=== PATIENT | male | born 1950 | race Caucasian/White ===

== ENCOUNTER 2025-08-26 09:57 | Emergency (ER) | payer MEDICARE, OTHER, SELFPAY ==
[2025-08-26] VITALS (8 sets, daily range): BP systolic 128–150; BP diastolic 93–116; BMI 21.5
[2025-08-26 10:27] LABS: Hematocrit 46.7 % (39.0-52.0); Hemoglobin 15.5 g/dL (13.0-18.0); Mean Corp Hgb Conc. 33.2 g/dL (33.0-37.0); Mean Corpuscular Volume 99.4 fL (80.0-94.0); Nucleated Red Blood Cells % 0 % (-); Platelet Count 246 10^3/uL (130-400); Red Cell Dist. Width 11.9 % (11.5-14.5)
[2025-08-26 10:40] LABS: ALT (SGPT) 26 U/L (0-50); AST (SGOT) 29 U/L (17-59); Albumin 4.6 g/dl (3.5-5.0); Alkaline Phosphatase 75 U/L (38-126); Blood Urea Nitrogen 18 mg/dl (9-20); Calcium 10.0 mg/dl (8.4-10.2); Carbon Dioxide 24 mmol/L (22-30); Chloride 108 mmol/L (98-107); Glucose 103 mg/dl (70-99); Potassium 4.6 mmol/L (3.5-5.1); Sodium 139 mmol/L (135-145); Total Protein 6.9 g/dl (6.3-8.2); eGFR > 60.00
--- NOTE | 2025-08-26 12:08 | ED.GENMED ---
History of Present Illness
General
Chief Complaint: Heart Rate Problem
Source: patient
Exam Limitations: none
Time Seen by Provider: 08/26/25 11:56
History of Present Illness
History of Present Illness:
See MDM
Past History
Past History
ED Past Medical History: Arrthythmia (PAF)
ED Past Surgical History: Tonsilectomy and Urological
Social History
Tobacco: Non-smoker
Personal:
Living: with family
Family History
Family History: Other (Atrial fibrillation)
Phy Exam
Physical Exam
Physical Exam:
See MDM
Scores
[id number] Score for Afib Stroke Risk
Age in Years (65=0, 65-74=1, >/=75=2): > or = 75
Sex (Female=+1): Male
Congestive Heart Failure History (Yes=+1): No
Hypertension History (Yes=+1): No
Stroke/TIA/Thromboembolism History (Yes=+2): No
Vascular Disease History (Yes=+1): No
Diabetes Mellitus (Yes=+1): No
Score: 2
Anticoagulation Recommendations: Recommend anticoagulation (as validated in nonvalvular fib)
Course
Orders/Labs/Results
Orders:
Orders
08/26/25 10:11
ECG [Electrocardiogram (*1)] Urgent
Reason for Study: Palpitations
EKG- Treatment ONCE
08/26/25 10:19
CMP [Comprehensive Metabolic Panel] Urgent
Complete Blood Count/With Diff Urgent
08/26/25 12:07
0.9% Sodium Chloride 1000 ml [Nss] 1,000 ml IV BOLUS
Diltiazem HCl [Cardizem] 17 mg IV NOW STA
08/26/25 13:57
Metoprolol Xl [Toprol Xl] 25 mg PO NOW STA
08/26/25 13:58
Apixaban [Eliquis] 5 mg PO ONCE ONE
Abnormal Lab Results
08/26/25
10:19
MCV 99.4 H fL
(80.0-94.0)
MCH 33.0 H pg
(27.0-31.0)
Absolute Monos (auto) 0.7 H 10^3/uL
(0.1-0.6)
Chloride 108 H mmol/L
(98-107)
Glucose 103 H mg/dl
(70-99)
08/26/25 10:19
08/26/25 10:19
Vital Signs
Initial and Last Documented VS:
Initial Vital Signs
Temp Pulse Resp BP Pulse Ox
98.0 F 71 18 134/95 98
08/26/25 10:08 08/26/25 10:08 08/26/25 10:08 08/26/25 10:08 08/26/25 10:08
Last Documented Vital Signs
Temp Pulse Resp BP Pulse Ox
98.0 F 78 15 128/97 99
08/26/25 10:08 08/26/25 14:00 08/26/25 14:00 08/26/25 14:00 08/26/25 13:06
MDM/Problems Addressed
Differential Diagnosis Includes:
Note:
CHIEF COMPLAINT(S)
Palpitations and irregular heart rhythm consistent with atrial fibrillation for the past two days.
HISTORY OF PRESENT ILLNESS
The patient is a 75-year-old male with a history of atrial fibrillation and previous ablation presenting with palpitations and irregular heartbeat, which started the day before yesterday morning. The symptoms became more pronounced in the afternoon,
causing significant annoyance and anxiety for the patient. He described experiencing panic attacks due to concerns about potential reoccurrence of atrial fibrillation and needing another ablation procedure. The patient has not been on any
anticoagulants prior to the presentation, although he started taking aspirin after noticing the irregular heartbeat.
He reported a previous cardioversion attempt prior to his ablation, which did not maintain a normal rhythm for long. The patient is aware that ablations are not a permanent cure and recurrence is possible. He expressed concern over the possibility
of having to restart blood thinners. Currently, he is not on any prescribed medication for atrial fibrillation like metoprolol or anticoagulants like Apixaban or Rivaroxaban but had been on them in the past.
PHYSICAL EXAM
General: Alert, no acute distress.
Skin: Warm, dry.
Head: Normocephalic, atraumatic
Neck: Appears supple, trachea midline.
Eyes, Ears, Nose, Mouth, and Throat: Moist mucous membranes
Cardiovascular: No signs of cyanosis. Tachycardic and irregular
Respiratory: Respirations are non-labored.
Abdomen: Non-distended
Musculoskeletal: No deformities
Neurological: No focal neurological deficit observed.
Psychiatric: Cooperative, appropriate mood and affect.
PLAN
- Establish IV access and administer fluids.
- Administer a dose of Diltiazem to attempt to slow the heart rate.
- Consult with the cardiology team for further evaluation and management, including the potential restart of anticoagulation therapy.
- Discuss with the patient the possibility of resuming blood thinner medication for stroke prevention.
- Monitor the heart rhythm to ensure it does not remain in fast atrial fibrillation, which is not sustainable for daily living.
DIFFERENTIAL DIAGNOSIS
The Differential Diagnosis includes, in no particular order and is not limited to:
- Atrial fibrillation with rapid ventricular response
- Cardiomyopathy
- Valvular heart disease
- Hyperthyroidism
- Electrolyte imbalance
- Myocardial infarction
- Pulmonary embolism
- Congestive heart failure
- Hypertensive heart disease
- Coronary artery disease
EKG
My independent EKG interpretation is:
- Rhythm: Atrial Fibrillation with Rapid Ventricular Response (RVR)
- Heart Rate: 117 beats per minute
- Wayside: Normal
- ST Segment: No elevation noted
SUMMARY OF ENCOUNTER
The patient, a 75-year-old male with a history of atrial fibrillation, presented to the emergency department with palpitations and irregular heart rhythm. Upon admission, the patient received an intravenous dose of diltiazem, which successfully
controlled his heart rate. He reported feeling significantly better. There were no lab abnormalities found that might suggest a cause for the recurrence of atrial fibrillation.
DISPOSITION
Discharge.
ASSESSMENT
Atrial fibrillation with rapid ventricular response.
EMERGENCY TREATMENTS ADMINISTERED
Intravenous dose of diltiazem.
PLAN
The patient will be started on metoprolol and apixaban due to an elevated [id number] score to prevent stroke. The patient will also be placed on the cardiac callback tracker for follow-up.
PATIENT EDUCATION AND COUNSELING
The patient was informed about return precautions and potential symptoms that would necessitate a return to the hospital. He was counseled on the importance of follow-up with cardiology to discuss the possibility of an ablation procedure as an
outpatient.
FOLLOW-UP INSTRUCTIONS
The patient should follow up with cardiology to discuss further management, including the possibility of an ablation procedure.
MEDICATION RECONCILIATION
Started on metoprolol and apixaban.
MEDICAL DECISION MAKING
-Complexity of Data Reviewed: Chronic conditions affecting care include atrial fibrillation and history of ablation. The differential diagnosis includes atrial fibrillation with rapid ventricular response, cardiomyopathy, valvular heart disease,
hyperthyroidism, electrolyte imbalance, myocardial infarction, pulmonary embolism, congestive heart failure, hypertensive heart disease, and coronary artery disease.
-Data:
Category 1: My independent interpretation of the EKG indicated atrial fibrillation with a rapid ventricular response.
-Category 3: Discussion of management with the cardiology team regarding the initiation of anticoagulation therapy.
-Risk: Prescription medication was prescribed: metoprolol and apixaban. Consideration of Admission/Observation: Escalation of care including admission/observation was considered given the complexity and risk of the patients presenting complaint and
underlying comorbidities. However, ultimately I feel the patient is safe for outpatient management with close follow-up. Reasoning: Work-up reassuring, does not reveal any acute life/organ-threatening processes, patients symptoms well controlled
upon reevaluation, reexamination is reassuring, vitals are stable, patient agreeable with discharge, reliable for follow-up.
DIAGNOSIS
Atrial fibrillation with rapid ventricular response (I48.0).
*Pulse Oximetry
SaO2: 100
Oxygen Mode of Delivery: Room air
Patient hypoxic: no
*Critical Care Note
Total Time (30-74mins, 75-104mins- exclusive of procedures): Not Applicable
ED Attending Note
-
Portions of this chart may have been created with voice recognition software.� Occasional wrong word or��sound alike� substitutions may have occurred due to the inherent limitations of voice recognition software.
Discharge Plan
Departure
Patient Disposition: Home (Routine Discharge)
Date of Disposition: 08/26/25
Time of Disposition: 14:00
Patient with high blood pressure during this ER visit?: No
Discharge Problem:
A-fib
Instructions: Atrial Fibrillation (DC), Chest Pain DCA Follow Up
Prescriptions:
New
metoprolol succinate [Toprol XL] 25 mg tablet extended release 24 hr
25 mg PO DAILY Qty: 30 0RF
Eliquis 5 mg tablet
5 mg PO BID Qty: 60 0RF
No Action
aspirin 325 mg Tablet
650 mg PO BIDPRN PRN (Reason: chest pains)
Referrals:
Candelaria Monge DO [Family Provider, Family Practice]
Activity Restrictions/Additional Instructions:
Please return for any worsening symptoms.
You may return at any time if you have further concerns.
Please follow up with your doctor at the first available appointment, preferably this week.
You were placed on the cardiac callback tracker. Someone from their office should call you in the next few days. If you do not hear from them in the next few days, please give them a call.
Thank you for choosing [facility].
Interventions
Interventions:
*Risk Screen - Suicide Last Done: 08/26/25 10:08
*General Assessment Last Done: 08/26/25 10:08
*ED COVID-19 Vaccine History Last Done: 08/26/25 11:37
*ED Influenza Vaccine History Last Done: 08/26/25 11:37
ED- Cardiac Assessment Last Done: 08/26/25 11:37
ED- Pulmonary Assessment Last Done: 08/26/25 11:37
Discharge Date and Time
Print Language: DIVEHI
[2025-08-26] MEDS: NSS 1000 IV (12:29)
[2025-08-26] MEDS: CARDIZEM 17 MG IV (12:38)
[2025-08-26] MEDS: ELIQUIS 5 MG PO (14:07)
[2025-08-26] MEDS: TOPROL XL 25 MG PO (14:07)
== END 2025-08-26 14:21 | disposition home or self-care (01) ==
LOC: EMR 09:57
PROVIDERS: EMERGENCY PHYSICIAN Student in an Organized Health Care Education/Training Program; FAMILY PHYSICIAN Family Medicine
DX: I48.91 Unspecified atrial fibrillation (principal); Z98.890 Other specified postprocedural states
CPT/HCPCS: 96374; 96361; 99284; 80053; 85025; 93005

== ENCOUNTER → 2025-09-12 13:16 | Outpatient (REF) | payer MEDICARE, OTHER, SELFPAY | LOC: RCS 13:16 | PROVIDERS: ATTENDING PHYSICIAN Internal Medicine Cardiovascular Disease; FAMILY PHYSICIAN Family Medicine | DX: I48.0 Paroxysmal atrial fibrillation (principal) | CPT/HCPCS: 93306 ==

== ENCOUNTER 2025-09-17 06:32 | Day surgery (SDC) | payer MEDICARE, OTHER, SELFPAY | END 2025-09-17 08:43 | disposition home or self-care (01) | LOC: CATH 06:32 | PROVIDERS: ATTENDING PHYSICIAN Internal Medicine; FAMILY PHYSICIAN Family Medicine; OTHER PHYSICIAN Internal Medicine Cardiovascular Disease | DX: I48.0 Paroxysmal atrial fibrillation (principal); I49.1 Atrial premature depolarization; Z79.01 Long term (current) use of anticoagulants; I34.1 Nonrheumatic mitral (valve) prolapse; E78.00 Pure hypercholesterolemia, unspecified | CPT/HCPCS: 92960; 93005 ==